=== PATIENT | female | born 1960 | race Caucasian/White ===

== ENCOUNTER 2017-10-10 15:12 | Emergency (ER) | payer MEDICAID ==
[2017-10-10 15:18] VITALS: O2SAT 94
[2017-10-10] MEDS ORDERED: NS 1,000 ML IV ONE (16:07)
--- NOTE | 2017-10-10 16:07 | EDPHY ---
H & P Time Seen by Provider: 10/10/17 15:33 HPI/ROS: CHIEF COMPLAINT: Diarrhea HISTORY OF PRESENT ILLNESS: The patient is a 49-year-old female with a history of "abdominal issues. "Patient has had 10 days of nonbloody diarrhea. She has had intermittent abdominal cramping. She was seen by her primary care physician on . She had stool cultures as well as laboratory studies drawn. On Thursday she was given the results and told that everything was negative. A prescription of Cipro and Flagyl were called in. Today at noon she took the 1st dose of both Cipro and Flagyl and within 10 minutes had severe abdominal cramping, became nauseated and vomited. She has no abdominal pain at this time. She denies fevers or chills. No recent out of the country travel. No other antibiotic use except as stated above. REVIEW OF SYSTEMS: My complete review of systems is negative except as mentioned in the HPI. Past Medical/Surgical History: Includes umbilical hernia, prostatic hip Social history: The patient does not smoke. No alcohol use. Smoking Status: Never smoked Physical Exam: 37.0, 95/68, 81, 15, 94% on room air GENERAL: Well-appearing, in no acute distress, alert. HEENT: Eyes normal to inspection, normal pharynx, no signs of dehydration. NECK: No thyromegaly, no lymphadenopathy, supple. RESPIRATORY: Clear to auscultation bilaterally, no rales, rhonchi or wheezing. CVS: Regular rate and rhythm, no rubs, murmurs, or gallops. ABDOMEN: Soft, nontender, nondistended, no organomegaly. Benign. BACK: Normal to inspection, no CVA tenderness. SKIN: Normal color, no rash, warm, dry. No pallor. EXTREMITIES: No pedal edema, no calf tenderness, no joint swelling. NEURO/PSYCH: Alert and oriented, normal mood and affect, normal motor sensory exam. Constitutional: Initial Vital Signs Temperature (C) 37 C 10/10/17 15:15 Heart Rate 81 10/10/17 15:15 Respiratory Rate 15 10/10/17 15:15 Blood Pressure 95/68 L 10/10/17 15:15 O2 Sat (%) 94 10/10/17 15:15 O2 Delivery Mode Room Air Allergies/Adverse Reactions: No Known Allergies Allergy (Unverified 10/10/17 15:15) Home Medications: Medication Instructions Recorded Cipro 10/10/17 METRONIDAZOLE 10/10/17 Medical Decision Making ED Course/Re-evaluation: In the emergency department I discussed possible etiologies with the patient. I answered all her questions. An IV was placed. Laboratory studies were obtained. Patient given normal saline 1 L IV for hydration. She is now having no discomfort at this time so she was not given pain medication. I reviewed the patient's laboratory studies. White count was 10. Her previous white count was 10. Patient's potassium is low at 3.1. Previous potassium was 3.3. The rest the patient's electrolytes and LFTs are normal. The patient was given potassium chloride 60 mEq orally. Patient fell asleep in the emergency department. On recheck she woke up. She denies any abdominal pain. Her abdomen was soft, nontender nondistended. 182: On recheck the patient is doing well. No abdominal pain. Her abdomen is soft, nontender nondistended. We are awaiting the results of her stool sample. This will be a few hours so the patient was discharged home. She will follow up with primary care physician. She was also given follow-up with GI. She is given warnings. Differential Diagnosis: My differential includes but is not limited to viral illness, gastroenteritis, infectious diarrhea, parasitic disease, Crohn's disease, IBS, diverticulitis, malignancy, mass - Data Points Laboratory Results: Laboratory Results 10/10/17 15:30 10/10/17 15:30 10/10/17 10/10/17 10/10/17 17:18 15:30 15:30 WBC 10.48 10^3/uL H 10^3/uL (3.80-9.50) RBC 4.79 10^6/uL 10^6/uL (4.18-5.33) Hgb 16.0 g/dL g/dL (12.6-16.3) Hct 43.8 % % (38.0-47.0) MCV 91.4 fL fL (81.5-99.8) MCH 33.4 pg pg (27.9-34.1) MCHC 36.5 g/dL g/dL (32.4-36.7) RDW 12.5 % % (11.5-15.2) Plt Count 281 10^3/uL 10^3/uL (150-400) MPV 9.6 fL fL (8.7-11.7) Neut % (Auto) Not Reported Lymph % (Auto) Not Reported [place] % (Auto) Not Reported Eos % (Auto) Not Reported Baso % (Auto) Not Reported Nucleat RBC Rel Count 0.0 % % (0.0-0.2) Absolute Neuts (auto) Not Reported Absolute Lymphs (auto) Not Reported Absolute Monos (auto) Not Reported Absolute Eos (auto) Not Reported Absolute Basos (auto) Not Reported Absolute Nucleated RBC 0.00 10^3/uL 10^3/uL (0-0.01) Immature Gran % Not Reported Seg Neutrophils % 54 % % Band Neutrophils % 2 % % Lymphocytes % 22 % % Eosinophils % 21 % % Basophils % 1 % % Immature Gran # Not Reported Absolute Seg Neuts 5.66 10^/uL 10^/uL (1.70-6.50) Absolute Band Neuts 0.21 10^3/uL 10^3/uL (0.00-0.70) Absolute Lymphocytes 2.31 10^3/uL 10^3/uL (1.00-3.00) Absolute Eosinophils 2.20 10^3/uL H 10^3/uL (0.03-0.40) Absolute Basophils 0.10 10^3/uL 10^3/uL (0.02-0.10) RBC/WBC/PLT Morphology NORMAL (NORMAL) Atypical Lymphocytes 1+ H Platelet Estimate ADEQUATE (ADEQ) Smear Review By Pending Sodium 138 mEq/L mEq/L (134-144) Potassium 3.1 mEq/L L mEq/L (3.5-5.2) Chloride 100 mEq/L mEq/L (97-110) Carbon Dioxide 27 mEq/l mEq/l (22-31) Anion Gap 11 mEq/L mEq/L (8-16) BUN 12 mg/dL mg/dL (7-23) Creatinine 1.0 mg/dL mg/dL (0.6-1.0) Estimated GFR 57 Glucose 123 mg/dL H mg/dL (70-100) Calcium 9.5 mg/dL mg/dL (8.5-10.4) Total Bilirubin 0.6 mg/dL mg/dL (0.1-1.4) Conjugated Bilirubin 0.1 mg/dL mg/dL (0.0-0.5) Unconjugated Bilirubin 0.5 mg/dL mg/dL (0.0-1.1) AST 17 IU/L IU/L (14-46) ALT 35 IU/L IU/L (9-52) Alkaline Phosphatase 69 IU/L IU/L (38-126) Total Protein 6.4 g/dL g/dL (6.3-8.2) Albumin 3.8 g/dL g/dL (3.5-5.0) Lipase 194 IU/L IU/L (23-300) Urine Color PALE YELLOW Urine Appearance CLEAR Urine pH 6.0 (5.0-7.5) Ur Specific [place] 1.003 (1.002-1.030) Urine Protein NEGATIVE (NEGATIVE) Urine Ketones NEGATIVE (NEGATIVE) Urine Blood NEGATIVE (NEGATIVE) Urine Nitrate NEGATIVE (NEGATIVE) Urine Bilirubin NEGATIVE (NEGATIVE) Urine Urobilinogen NEGATIVE EU EU (0.2-1.0) Ur Leukocyte Esterase NEGATIVE (NEGATIVE) Urine Glucose NEGATIVE (NEGATIVE) Medications Given: Discontinued Medications Sodium Chloride (Ns) 1,000 mls @ 0 mls/hr IV EDNOW ONE; Wide Open PRN Reason: Protocol Stop: 10/10/17 16:08 Last Admin: 10/10/17 16:20 Dose: 1,000 mls Potassium Chloride (Potassium Chloride Oral Liquid) 60 meq PO EDNOW ONE Stop: 10/10/17 16:26 Last Admin: 10/10/17 17:09 Dose: 60 meq Departure - Departure Disposition: Home, Routine, Self-Care Clinical Impression: Diarrhea Qualifiers: Diarrhea type: unspecified type Qualified Code(s): R19.7 - Diarrhea, unspecified Condition: Good Instructions: Acute Diarrhea (ED) Additional Instructions: Your laboratory studies were remarkable only for low potassium. Return with increasing abdominal pain, fever, bloody diarrhea or any other concerns. Referrals: Emilio Latif [Primary Care Provider] - As per Instructions César Mayorga MD [[facility] [place] Primary Care Provider] - 5-7 days, if not improved
[2017-10-10 16:15] LABS: ADD DIFF? YES; ADD MORPH? NO; ADD SCAN? NO; ATYPICAL LYMPHOCYTE FLAG 20 (0-99); FRAGMENT RBC FLAG 0 (0-99); HEMATOCRIT 43.8 % (38.0-47.0); LEFT SHIFT FLG 0 (0-99); LIPEMIA HEMOLYSIS FLAG 90 (0-99); MEAN CELL HEMOGLOBIN 33.4 pg (27.9-34.1); MEAN CELL HEMOGLOBIN CONCENTR. 36.5 g/dL (32.4-36.7); MEAN CELL VOLUME 91.4 fL (81.5-99.8); MEAN PLATELET VOLUME 9.6 fL (8.7-11.7); PLATELET CLUMPS FLAG 0 (0-99); PLATELET COUNT 281 10^3/uL (150-400); RED BLOOD CELL COUNT 4.79 10^6/uL (4.18-5.33); RED CELL DISTRIBUTION WIDTH 12.5 % (11.5-15.2)
[2017-10-10 16:21] LABS: ALANINE AMINOTRANSFERASE 35 IU/L (9-52); ALBUMIN 3.8 g/dL (3.5-5.0); ALKALINE PHOSPHATASE 69 IU/L (38-126); ANION GAP 11 mEq/L (8-16); ASPARTATE AMINOTRANSFERASE 17 IU/L (14-46); BILIRUBIN,TOTAL 0.6 mg/dL (0.1-1.4); BILIRUBIN-CONJUGATED 0.1 mg/dL (0.0-0.5); BILIRUBIN-UNCONJUGATED 0.5 mg/dL (0.0-1.1); CALCIUM 9.5 mg/dL (8.5-10.4); CARBON DIOXIDE 27 mEq/l (22-31); CHLORIDE 100 mEq/L (97-110); GLOMERULAR FILTRATION RATE 57; GLUCOSE 123 mg/dL (70-100); POTASSIUM 3.1 mEq/L (3.5-5.2); SODIUM 138 mEq/L (134-144); TOTAL PROTEIN 6.4 g/dL (6.3-8.2)
[2017-10-10] MEDS ORDERED: POTASSIUM CL 20 MEQ/15 ML UDCUP PO ONE (16:25)
[2017-10-10 16:39] LABS: PLATELET ESTIMATE ADEQUATE (ADEQ)
[2017-10-10 17:57] LABS: COLOR PALE YELLOW; LEUKOCYTE ESTERASE,URINE NEGATIVE (NEGATIVE); NITRITE,URINE NEGATIVE (NEGATIVE)
[2017-10-10 18:36] VITALS: BP 95/56; PULSE 64; RESP 18; TEMP 98.6
== END 2017-10-10 18:39 | disposition home or self-care (01) ==
DX: R19.7 Diarrhea, unspecified (principal); E86.9 Volume depletion, unspecified